=== PATIENT | female | born 1995 | race Caucasian/White ===

== ENCOUNTER 2020-10-01 20:23 | Emergency (ER) | payer OTHER ==
[~2020-10-01] VITALS: Ht 170.2 cm; Wt 65.8 kg
[2020-10-01] MEDS ORDERED: PROVENTIL HFA6.7 G1 INH (21:38)
[2020-10-01] MEDS ORDERED: DECADRON6 MG PO (21:38)
[2020-10-01 21:47] VITALS: BP 137/86
== END 2020-10-01 21:49 | disposition home or self-care (01) ==
LOC: M.ERS 20:23
DX: U07.1 COVID-19 (principal)